=== PATIENT | male | born 1950 | race Hispanic/Latino ===

== ENCOUNTER 2018-09-15 17:25 | Emergency (ER) | payer OTHER ==
[2018-09-15] MEDS ORDERED: METOCLOPRAMIDE 10 MG/2 ML VIAL ONE (18:21)
[2018-09-15] MEDS ORDERED: ONDANSETRON HCL 4 MG/2 ML VIAL ONE (18:21)
[2018-09-15] MEDS ORDERED: SODIUM CHLORIDE 0.9% 1000ML 1,000 ML IV ONE (18:21)
[2018-09-15] MEDS ORDERED: FENTANYL CITRATE PF 50 MCG/1 ML 2ML VIAL ONE ×2 (18:22→20:57)
[2018-09-15 18:30] LABS: BASOPHILS % (AUTO) 0.9 % (0.0-5.0); EOSINOPHILS % (AUTO) 0.8 % (0.0-8.0); HEMATOCRIT 43.2 % (42-54); LYMPHOCYTES % (AUTO) 10.2 % (21.0-51.0); MEAN CORPUSCULAR HEMOGLOBIN 30.2 pg (27.0-33.0); MEAN CORPUSCULAR HGB CONC 33.2 g/dL (32.0-36.0); MEAN CORPUSCULAR VOLUME 91.1 fL (79-99); MONOCYTES % (AUTO) 2.5 % (3.0-13.0); NEUTROPHILS % (AUTO) 85.6 % (40.0-77.0); NUCLEATED RED BLOOD CELLS 0.1 % (0.0-0.19); PLATELET COUNT (AUTO) 223 K/uL (130-400); RED BLOOD CELL COUNT(AUTO) 4.74 MIL/uL (4.50-6.20); RED CELL DISTRIBUTION WIDTH 13.7 % (11.0-15.5); WHITE BLOOD COUNT (AUTO) 7.4 K/uL (4.8-10.8)
[2018-09-15] MEDS ORDERED: METHYLPREDNISOLONE SOD SUCC 125MG/2ML VIAL ONE (18:59)
[2018-09-15 19:11] LABS: BILIRUBIN,TOTAL 0.4 mg/dL (0.2-1.0); CREATININE 0.7 mg/dL (0.5-1.5); TOTAL PROTEIN, SERUM 7.8 g/dL (6.0-8.3)
[2018-09-15 19:12] LABS: POTASSIUM 4.9 mmol/L (3.5-5.1)
[2018-09-15] MEDS ORDERED: DiphenhydrAMINE HCL 50 MG/ML VIAL ONE (19:32)
== END 2018-09-15 21:46 | disposition home or self-care (01) ==
LOC: EDH 17:25
DX: G43.019 Migraine without aura, intractable, without status migrainosus (principal); M54.2 Cervicalgia; I10 Essential (primary) hypertension; Z88.6 Allergy status to analgesic agent; Z72.0 Tobacco use
CPT/HCPCS: 36415; 70450; 80053; 83690; 85025; 96374; 96375; 96376; 99284; J1200; J2405; J2765; J2930; J3010 ×2; J7030

== ENCOUNTER 2019-02-22 12:16 | Emergency (ER) | payer OTHER | END 2019-02-22 13:37 | disposition home or self-care (01) | LOC: EDH 12:16 | DX: G89.29 Other chronic pain (principal); M25.511 Pain in right shoulder; I10 Essential (primary) hypertension; Z72.0 Tobacco use; Z88.6 Allergy status to analgesic agent | CPT/HCPCS: 96372 ==

== ENCOUNTER 2019-06-03 13:15 | Inpatient (IN) | payer OTHER ==
[~2019-06-03] VITALS: Ht 172.7 cm; Wt 57.0 kg
[2019-06-03 15:49] VITALS: BP 150/80
[2019-06-03 15:59] LABS: BILIRUBIN,URINE Negative (NEGATIVE); COLOR,URINE Yellow (YELLOW); GLUCOSE, URINE (UA) Negative (NEGATIVE); KETONES,URINE Negative (NEGATIVE); LEUKOCYTE ESTERASE ,URINE Negative (NEGATIVE); NITRATE,URINE Negative (NEGATIVE); OCCULT BLOOD,URINE Negative (NEGATIVE); PH,URINE 7.5 (5.0-8.0); PROTEIN,URINE Negative (NEGATIVE)
[2019-06-03 16:04] LABS: APPEARANCE,URINE CLEAR (CLEAR)
[2019-06-03] MEDS ORDERED: BUPR150T8 PO (16:07)
[2019-06-03] MEDS ORDERED: AMIT50TA3 PO (16:07)
[2019-06-03] MEDS ORDERED: GABA600T10 PO (16:07)
[2019-06-03] MEDS ORDERED: LISI40TA4 PO (16:07)
[2019-06-03] MEDS ORDERED: NICO2GUM35 BC (16:07)
[2019-06-03] MEDS ORDERED: MILK OF MAGNESIA PO (16:07)
[2019-06-03] MEDS ORDERED: POTA-79 PO (16:07)
[2019-06-03] MEDS ORDERED: OXYC-517 PO (16:07)
[2019-06-03] MEDS ORDERED: ALBUTEROL IH (16:07)
[2019-06-03] MEDS ORDERED: CHOL400T4 PO (16:07)
[2019-06-03] MEDS ORDERED: BUDESONIDE IH (16:07)
[2019-06-03] MEDS ORDERED: SUMA25TA9 PO (16:07)
[2019-06-03] MEDS ORDERED: TOPI50TA24 PO (16:07)
[2019-06-03] MEDS ORDERED: CYAN100099 PO (16:07)
[2019-06-03] MEDS ORDERED: ASPI-1181 PO (16:07)
[2019-06-04] VITALS (31 sets, daily range): BP systolic 97–173; BP diastolic 58–106
--- NOTE | 2019-06-04 07:30 | NUR ---
POTENTIAL FOR INFECTION: SHAVED RIGHT SHOULDER / UPPER RIGHT ARM PER REBECCA DAVIS, FOLLOWED BY WIPING WITH TEODORA: 2% CHLORHEXIDINE GLUCONATE CLOTH PATIENTS PRE-OP SKIN PREP.
[2019-06-04] MEDS: CEFAZOLIN SODIUM 1 GM VIAL IVP SCH ×3 (08:00→18:42)
[2019-06-04] MEDS ORDERED: LACTATED RINGERS 1000ML 1,000 ML IV ONE (08:07)
[2019-06-04] MEDS ORDERED: CEFAZOLIN SODIUM 1 GM VIAL ONE (08:55)
[2019-06-04] MEDS ORDERED: TRANEXAMIC ACID 1000MG/10ML IV ONE (08:55)
[2019-06-04] MEDS ORDERED: OXYCODONE HCL 10 MG TAB.SR.12H PO ONE (09:18)
[2019-06-04] MEDS ORDERED: METOCLOPRAMIDE 10 MG/2 ML VIAL ONE (09:18)
[2019-06-04] MEDS ORDERED: CELECOXIB 200 MG CAP ONE (09:18)
[2019-06-04] MEDS ORDERED: ACETAMINOPHEN EXTRA STRENGTH 500 MG TABLET ONE (09:18)
[2019-06-04] MEDS ORDERED: LIDOCAINE PF 2% 5ML ABBOJECT ONE (09:56)
[2019-06-04] MEDS ORDERED: ROCURONIUM 10MG/1ML SYR 10 MG/ML ML ONE ×3 (09:57→12:22)
[2019-06-04] MEDS ORDERED: FENTANYL CITRATE PF 50 MCG/1 ML 2ML VIAL ONE ×3 (09:57→11:03)
[2019-06-04] MEDS ORDERED: MIDAZOLAM HCL 1 MG/ML 2ML VIAL ONE (09:57)
[2019-06-04] MEDS ORDERED: PROPOFOL 10 MG/ML 20ML VIAL IV ONE (09:57)
[2019-06-04] MEDS ORDERED: DEXAMETHASONE SOD PHOSPHATE 10MG/ML 1ML VIAL ONE (10:41)
[2019-06-04] MEDS ORDERED: ONDANSETRON HCL 4 MG/2 ML VIAL ONE (10:41)
[2019-06-04] MEDS ORDERED: CEFAZOLIN SODIUM 1 GM VIAL IRRIG ONE (11:01)
[2019-06-04] MEDS ORDERED: METOPROLOL TARTRATE 1 MG/ML 5ML VIAL IV ONE (11:05)
[2019-06-04] MEDS ORDERED: BUPIVACAINE/EPI/PF 0.5% 30ML VIAL IJ ONE (11:31)
[2019-06-04] MEDS ORDERED: BUPIVACAINE/PF 0.5% 30ML VIAL ONE (11:31)
[2019-06-04] MEDS ORDERED: GLYCOPYRROLATE 1 MG/5 ML SYRINGE ONE (12:11)
[2019-06-04] MEDS ORDERED: NEOSTIGMINE 5MG/5ML SYR IV ONE (12:11)
[2019-06-04] MEDS: ACETAMINOPHEN EXTRA STRENGTH 500 MG TABLET PO SCH ×2 (13:45→20:36)
[2019-06-04] MEDS ORDERED: FE FUMARATE/FA/MV, MIN COMB#15 1 TAB PO PRN (13:45)
[2019-06-04] MEDS ORDERED: LIDOCAINE HCL-MPF 1% 2ML VIAL IVP PRN (13:45)
[2019-06-04] MEDS ORDERED: POTASSIUM CHLORIDE 10% ELIXIR 20 MEQ/15 ML UDCUP PO PRN (13:45)
[2019-06-04] MEDS ORDERED: POTASSIUM CHLORIDE 20MEQ/100ML 100 ML IV PRN (13:45)
[2019-06-04] MEDS ORDERED: DiphenhydrAMINE HCL 50 MG/ML VIAL IVP PRN (13:45)
[2019-06-04] MEDS ORDERED: TEMAZEPAM 15 MG CAPSULE PO PRN (13:45)
[2019-06-04] MEDS ORDERED: POTASSIUM CHLORIDE 20 MEQ ERTAB PO PRN (13:45)
[2019-06-04] MEDS ORDERED: MEPERIDINE-PF 25 MG/ML SYG ONE ×2 (13:55→14:22)
[2019-06-04] MEDS ORDERED: HYDROMORPHONE PCA 10 MG/50 ML 50 ML IV ONE (14:29)
[2019-06-04] MEDS ORDERED: HYDRALAZINE HCL 20 MG/ML VIAL ONE (14:34)
[2019-06-04] MEDS ORDERED: NALOXONE HCL 0.4 MG/1 ML ML IVP PRN (15:00)
[2019-06-04] MEDS ORDERED: HYDROMORPHONE PCA 10MG/50 ML ( 0.2 MG/ML ) IV PRN (15:00)
--- NOTE | 2019-06-04 15:30 | NUR ---
Admitted pt to room, awake,alert,oriented x3. Dilaudid PATTERNMAKER METAL in connected to pt. Instructed on the usage of the PATTERNMAKER METAL and was able to perform return demonstration. Hemovac in place to right shoulder. Dressing dry and intact. Ice packs in place to right shoulder.
[2019-06-04] MEDS: SODIUM CHLORIDE 0.9% 1000ML 1,000 ML IV SCH ×2 (16:49→20:36)
[2019-06-04] MEDS: CELECOXIB 200 MG CAP PO SCH (20:35)
[2019-06-04] MEDS: PREGABALIN 25 MG CAP PO SCH (20:35)
[2019-06-04] MEDS: ASPIRIN 325 MG TABLET PO SCH (20:35)
[2019-06-04] MEDS: FAMOTIDINE 20MG TAB 20 MG TAB PO SCH (20:36)
[2019-06-05] MEDS: CEFAZOLIN SODIUM 1 GM VIAL IVP SCH (02:56)
[2019-06-05 03:30] VITALS: BP 112/56
[2019-06-05] MEDS: NICOTINE POLACRILEX 2 MG PO SCH ×3 (04:17→14:23)
[2019-06-05] MEDS: ACETAMINOPHEN EXTRA STRENGTH 500 MG TABLET PO SCH ×3 (04:41→22:31)
[2019-06-05] MEDS: OXYCODONE HCL 5 MG TAB PO PRN ×3 (05:29→21:17)
[2019-06-05 05:35] LABS: HEMATOCRIT 32.1 % (42-54); MEAN CORPUSCULAR HEMOGLOBIN 30.5 pg (27.0-33.0); MEAN CORPUSCULAR HGB CONC 32.9 g/dL (32.0-36.0); MEAN CORPUSCULAR VOLUME 92.6 fL (79-99); PLATELET COUNT (AUTO) 171 K/uL (130-400); RED BLOOD CELL COUNT(AUTO) 3.47 MIL/uL (4.50-6.20); RED CELL DISTRIBUTION WIDTH 14.8 % (11.0-15.5); WHITE BLOOD COUNT (AUTO) 13.3 K/uL (4.8-10.8)
[2019-06-05] MEDS: ONDANSETRON HCL 4 MG/2 ML VIAL IVP PRN ×2 (05:35→21:22)
[2019-06-05 05:46] LABS: CREATININE 0.8 mg/dL (0.5-1.5); POTASSIUM 3.8 mmol/L (3.5-5.1)
[2019-06-05 08:10] VITALS: BP 146/73
[2019-06-05] MEDS: BUPROPION HCL 150 MG TABLET.SA PO SCH ×2 (08:53→19:46)
[2019-06-05] MEDS: ASPIRIN 325 MG TABLET PO SCH ×2 (08:53→19:46)
[2019-06-05] MEDS: POLYETHYLENE GLYCOL 3350 17 GM POWD.PACK PO SCH (08:53)
[2019-06-05] MEDS: FAMOTIDINE 20MG TAB 20 MG TAB PO SCH ×2 (08:53→19:46)
[2019-06-05] MEDS: CALCIUM CARBONATE 500 MG TABLET PO PRN ×2 (08:53→19:46)
[2019-06-05] MEDS: CELECOXIB 200 MG CAP PO SCH ×2 (08:53→19:46)
[2019-06-05] MEDS: PREGABALIN 25 MG CAP PO SCH ×2 (08:53→19:45)
[2019-06-05] MEDS: LISINOPRIL 40 MG TABLET PO SCH (08:54)
[2019-06-05] MEDS: TAMSULOSIN HCL 0.4 MG CAP.ER.24H PO SCH (08:54)
[2019-06-05] MEDS: VITAMIN D3 PO SCH (08:54)
[2019-06-05] MEDS: POTASSIUM CHLORIDE 10 MEQ/TAB.SA PO SCH (08:56)
[2019-06-05] MEDS: SUMATRIPTAN SUCCINATE 25 MG TABLET PO PRN ×2 (08:58→20:40)
[2019-06-05] MEDS: SODIUM CHLORIDE 0.9% 1000ML 1,000 ML IV SCH (10:11)
[2019-06-05 11:10] VITALS: BP 112/75
[2019-06-05 16:09] VITALS: BP 85/56
[2019-06-05] MEDS: TOPIRAMATE 100 MG TAB PO SCH (19:45)
[2019-06-05] MEDS: AMITRIPTYLINE HCL 25 MG TABLET PO SCH (19:46)
[2019-06-05 19:52] VITALS: BP 111/85
[2019-06-06] VITALS (7 sets, daily range): BP systolic 85–114; BP diastolic 52–74
[2019-06-06] MEDS: NICOTINE POLACRILEX 2 MG PO SCH ×5 (02:12→19:50)
[2019-06-06] MEDS: ACETAMINOPHEN EXTRA STRENGTH 500 MG TABLET PO SCH ×3 (05:24→20:54)
--- NOTE | 2019-06-06 08:30 | NUR ---
PT'S BP 85/56 DR. BRUNO AWARE PT DENIES SOB OR CHEST PAIN ALERT AND ORIENTED X 4 - BUT SLEEPY HVAC SERVICE TECHNICIAN STOPPED
--- NOTE | 2019-06-06 08:41 | NUR ---
UPDATE ON REFERRAL EMAIL FROM [facility] REQUESTING UPDATE. CALL TO ROBERT AT [facility], HEADS UP RE REFERRAL STATED HAS NOTE RECD, CALL BACK TO [facility], SAID SHE FAXED YESTERDAY, WILL RE FAX NOW. Addendum: 06/06/19 at 0844 by AYDE BAUMAN RN CM Amended: Links added.
[2019-06-06] MEDS ORDERED: BUDESONIDE IH PRN (09:00)
[2019-06-06] MEDS: LISINOPRIL 40 MG TABLET PO SCH (09:00)
[2019-06-06] MEDS ORDERED: Albuterol 2 PUFF IH PRN (09:00)
[2019-06-06] MEDS: VITAMIN D3 PO SCH (09:00)
[2019-06-06] MEDS: FAMOTIDINE 20MG TAB 20 MG TAB PO SCH ×2 (09:11→20:51)
[2019-06-06] MEDS: POLYETHYLENE GLYCOL 3350 17 GM POWD.PACK PO SCH (09:11)
[2019-06-06] MEDS: TAMSULOSIN HCL 0.4 MG CAP.ER.24H PO SCH (09:11)
[2019-06-06] MEDS: CELECOXIB 200 MG CAP PO SCH ×2 (09:11→20:50)
[2019-06-06] MEDS: ASPIRIN 325 MG TABLET PO SCH ×2 (09:11→20:51)
[2019-06-06] MEDS: BUPROPION HCL 150 MG TABLET.SA PO SCH ×2 (09:12→20:50)
[2019-06-06] MEDS: POTASSIUM CHLORIDE 10 MEQ/TAB.SA PO SCH (09:12)
[2019-06-06] MEDS: PREGABALIN 25 MG CAP PO SCH ×2 (09:13→20:50)
[2019-06-06] MEDS ORDERED: KETOROLAC TROMETHAMINE 30MG/ML ONE (10:57)
[2019-06-06] MEDS: OXYCODONE HCL 5 MG TAB PO PRN ×2 (11:01→17:06)
--- NOTE | 2019-06-06 14:00 | NUR ---
DR. BRUNO PAGED PT STILL BP 86/55 PT DENIES SOB OR CHEST PAIN PT STATES HE IS STILL IN PAIN DR. BRUNO CONSULTED HOSPITALIST
--- NOTE | 2019-06-06 14:07 | NUR ---
JOSÉ MANUEL STODDARD FOR [facility] [place] [facility] PRIMARY NURSE AWARE, WILL INFORM DR. KIANA LIN, RN ADVISED THIS CM THAT BP STILL LOW, DC WILL DEPEND ON DR. MORTENSEN PT AWARE THAT [place] APPROVED [facility] Addendum: 06/06/19 at 1937 by AYDE BAUMAN RN Amended: Links added.
--- NOTE | 2019-06-06 14:10 | NUR ---
DR. MORTENSEN PAGED AWRAE OF PT'S STATUS CPOE ORDERS
[2019-06-06] MEDS: MIDODRINE HCL 5 MG TABLET PO SCH ×2 (14:15→20:50)
[2019-06-06] MEDS ORDERED: MIDODRINE HCL 5 MG TABLET ONE (14:37)
--- NOTE | 2019-06-06 18:00 | NUR ---
DR. MORTENSEN AWARE THAT PER DR. BRUNO PT OK TO D/C ONCE CLEARED BY HOSPITALIST
--- NOTE | 2019-06-06 20:00 | NUR ---
PT'S DRESSING CHANGED NO SIGNS OF INFECTION NOTED HEMO VAC D/C ORDERED CATHETER TIP INTACT FAMILY AT BED SIDE
[2019-06-06] MEDS: AMITRIPTYLINE HCL 25 MG TABLET PO SCH (20:50)
[2019-06-06] MEDS: TOPIRAMATE 100 MG TAB PO SCH (20:51)
[2019-06-07] VITALS (7 sets, daily range): BP systolic 90–149; BP diastolic 55–81
[2019-06-07] MEDS: OXYCODONE HCL 5 MG TAB PO PRN ×4 (00:48→21:46)
--- NOTE | 2019-06-07 01:00 | NUR ---
PENDING CONSULT /LOW B/P CALLED HOSPITALIST SANDFILL OPERATOR SURFACE LISSETT ADAMP INFORMED OF PENDING CONSULT, ORDERS GIVEN BY DR. MORTENSEN BUT NOBODY HAS SEEN PATIENT , INFORMED ON B/P 89/53, PULSE 75, R 18, TEMP 98.4 F, WITH ORDERS, BOLUS PATIENT WITH 500 CC OF NS NOW AND WILL SEE PATIENT LATER
[2019-06-07] MEDS: SODIUM CHLORIDE 0.9% 1000ML 500 ML IV SCH ×4 (01:30→03:40)
--- NOTE | 2019-06-07 02:00 | NUR ---
med effect b/p 112/58, no sob, no c/o pain at this time
[2019-06-07] MEDS: ACETAMINOPHEN EXTRA STRENGTH 500 MG TABLET PO SCH ×3 (04:50→20:59)
[2019-06-07] MEDS: NICOTINE POLACRILEX 2 MG PO SCH ×4 (06:00→23:32)
--- NOTE | 2019-06-07 08:50 | NUR ---
as per registry np hospitalist stated no to give midrodane anymore
[2019-06-07] MEDS: TAMSULOSIN HCL 0.4 MG CAP.ER.24H PO SCH (09:00)
[2019-06-07] MEDS: LISINOPRIL 40 MG TABLET PO SCH (09:00)
[2019-06-07] MEDS: MIDODRINE HCL 5 MG TABLET PO SCH ×3 (09:00→21:02)
[2019-06-07] MEDS: VITAMIN D3 PO SCH (09:00)
[2019-06-07] MEDS: PREGABALIN 25 MG CAP PO SCH ×2 (09:05→20:58)
[2019-06-07] MEDS: FAMOTIDINE 20MG TAB 20 MG TAB PO SCH ×2 (09:05→20:58)
[2019-06-07] MEDS: POLYETHYLENE GLYCOL 3350 17 GM POWD.PACK PO SCH (09:05)
[2019-06-07] MEDS: ASPIRIN 325 MG TABLET PO SCH ×2 (09:05→20:58)
[2019-06-07] MEDS: POTASSIUM CHLORIDE 10 MEQ/TAB.SA PO SCH (09:06)
[2019-06-07] MEDS: BUPROPION HCL 150 MG TABLET.SA PO SCH ×2 (09:06→20:58)
[2019-06-07] MEDS: CELECOXIB 200 MG CAP PO SCH ×2 (09:06→20:57)
--- NOTE | 2019-06-07 10:20 | NUR ---
cm note received call from [facility] spoke to niko crump [phone]. and states that they are unable to accdpt pt today, due to short staffing at their facility. and will be unable to accept until sunday,I updated pt and verbalizes understanding. will do whatever md recommends. call then made to Dr modi to update on [facility] [place]. discussed with md regarding possible alternatvies home with home health, per md pt requires IP rehab. will await until pt approved at rehab. due to pt is [facility] and will require approval for any facility.
[2019-06-07] MEDS ORDERED: BISACODYL 10 MG SUPP.RECT RC PRN (13:45)
[2019-06-07] MEDS: TOPIRAMATE 100 MG TAB PO SCH (20:58)
[2019-06-07] MEDS: AMITRIPTYLINE HCL 25 MG TABLET PO SCH (20:58)
[2019-06-08] VITALS: BP 108/70
[2019-06-08] MEDS: OXYCODONE HCL 5 MG TAB PO PRN ×2 (01:47→09:15)
[2019-06-08 04:00] VITALS: BP 128/80
[2019-06-08] MEDS: ACETAMINOPHEN EXTRA STRENGTH 500 MG TABLET PO SCH ×2 (05:08→13:16)
[2019-06-08] MEDS: NICOTINE POLACRILEX 2 MG PO SCH ×2 (05:35→12:00)
[2019-06-08 07:55] VITALS: BP 124/85
[2019-06-08] MEDS: TAMSULOSIN HCL 0.4 MG CAP.ER.24H PO SCH ×2 (09:00→09:14)
[2019-06-08] MEDS: VITAMIN D3 PO SCH (09:00)
[2019-06-08] MEDS: LISINOPRIL 40 MG TABLET PO SCH (09:00)
[2019-06-08] MEDS: POLYETHYLENE GLYCOL 3350 17 GM POWD.PACK PO SCH (09:13)
[2019-06-08] MEDS: PREGABALIN 25 MG CAP PO SCH (09:14)
[2019-06-08] MEDS: ASPIRIN 325 MG TABLET PO SCH (09:14)
[2019-06-08] MEDS: FAMOTIDINE 20MG TAB 20 MG TAB PO SCH (09:14)
[2019-06-08] MEDS: BUPROPION HCL 150 MG TABLET.SA PO SCH (09:15)
[2019-06-08] MEDS: POTASSIUM CHLORIDE 10 MEQ/TAB.SA PO SCH (09:15)
[2019-06-08] MEDS: CELECOXIB 200 MG CAP PO SCH (09:15)
[2019-06-08 11:27] VITALS: BP 99/71
--- NOTE | 2019-06-08 14:00 | NUR ---
cm note received call from primary nurse estefani., that [facility] [place], had called and could accept pt. this evening, call made to garth charge nurse and she did confirm, that pt can go for evening shift, call then made to Amber jiménez, to confirm, and states pt can go to [facility], pt has been accepted for 7pm shift today, md updated and will come and write dc orders, pt updated and in agreement,
[2019-06-08] MEDS ORDERED: MAGNESIUM CITRATE 296 ML SOLUTION ONE (14:42)
[2019-06-08] MEDS ORDERED: MAGNESIUM CITRATE 296 ML SOLUTION PO ONE (14:45)
[2019-06-08 16:42] VITALS: BP 98/65
--- NOTE | 2019-06-08 18:05 | NUR ---
FULL SBAR REPORT GIVEN TO CHARGE NURSE [facility]ONC[facility] FAXED ALONG WITH MOT, AND FACE SHEET ORIGINALS OF D/C ORDERS MED REC, MOT , FACE SHEET ON THE D/C FOLDER AWARE OF FULL D/C ORDERS REFER TO D/C SUMMARY
--- NOTE | 2019-06-08 18:30 | NUR ---
TEACH BACK D/C DONE SUCCESSFULLY PT GIVEN COPY OF D/C ORDERS FROM DR. BRUNO AND COPY OF MED REC ALONG WITH SUMMARY D/C AND EDUCATION ON PROCEDURE AND ARM SLING IV REMOVED, CATHETER TIP INTACT INCISION CLEAN AND DRY PT DENIES SOB OR CHEST PAIN
== END 2019-06-08 19:54 | DRG 483 ==
LOC: EDSTATUS 13:15 → DAHIP 06-04 06:20 → 4AH 06-04 14:11
PROVIDERS: ADMIT Orthopaedic Surgery; ATTEND Orthopaedic Surgery
PROC: 0RRJ00Z Replacement of Right Shoulder Joint with Reverse Ball and Socket Synthetic Substitute, Open Approach (ICD-10-PCS; principal; 2019-06-04 09:57)
DX: M75.101 Unspecified rotator cuff tear or rupture of right shoulder, not specified as traumatic (principal); G89.29 Other chronic pain; F17.200 Nicotine dependence, unspecified, uncomplicated; G43.909 Migraine, unspecified, not intractable, without status migrainosus; I95.89 Other hypotension; J44.9 Chronic obstructive pulmonary disease, unspecified; K21.9 Gastro-esophageal reflux disease without esophagitis; K59.00 Constipation, unspecified; M24.111 Other articular cartilage disorders, right shoulder; M24.811 Other specific joint derangements of right shoulder, not elsewhere classified; I10 Essential (primary) hypertension; S43.101A Unspecified dislocation of right acromioclavicular joint, initial encounter; X58.XXXA Exposure to other specified factors, initial encounter; Z53.29 Procedure and treatment not carried out because of patient's decision for other reasons; Y93.89 Activity, other specified; Z82.49 Family history of ischemic heart disease and other diseases of the circulatory system; Y92.89 Other specified places as the place of occurrence of the external cause; Y99.8 Other external cause status; Z88.8 Allergy status to other drugs, medicaments and biological substances
CPT/HCPCS: 36415; 73020; 80048; 81003; 85027; 87641; 88304; 88311; 96374; 97039; A4565; G0378; J0360; J0690; J1100; J1170; J1885; J2001; J2175; J2250; J2405; J2704; J2710; J2765; J3010; J3490; J7030; J7120

== ENCOUNTER 2022-04-09 16:28 | Emergency (ER) | payer OTHER ==
[~2022-04-09] VITALS: Ht 162.6 cm; Wt 47.7 kg
[~2022-04-09 16:28] MED LIST: ALBUTEROL IH; AMIT50TA3 PO; ASPI-1443 PO; BUDESONIDE IH; BUPR-113 PO; CHOL400T4 PO; CYAN100099 PO; GABA600T10 PO; LISI40TA9 PO; MILK OF MAGNESIA PO; NICO2GUM35 BC; OXYC1TAB12 PO; POTA-79 PO; SUMA25TA9 PO; TOPI50TA24 PO
[2022-04-09] MEDS ORDERED: 0.9%NACL 1000ML 1,000 ML IV SCH (17:00)
[2022-04-09 17:39] LABS: BASOPHILS % (AUTO) 0.8 % (0.0-5.0); EOSINOPHILS % (AUTO) 0.7 % (0.0-8.0); LYMPHOCYTES % (AUTO) 24.8 % (21.0-51.0); MEAN CORPUSCULAR HEMOGLOBIN 28.3 pg (27.0-33.0); MEAN CORPUSCULAR VOLUME 85.9 fL (79-99); MONOCYTES % (AUTO) 6.8 % (3.0-13.0); NEUTROPHILS % (AUTO) 66.6 % (40.0-77.0); PLATELET COUNT (AUTO) 233 K/uL (130-400); RED BLOOD CELL COUNT(AUTO) 5.12 MIL/uL (4.50-6.20); RED CELL DISTRIBUTION WIDTH 13.6 % (11.0-15.5); WHITE BLOOD COUNT (AUTO) 7.3 K/uL (4.8-10.8)
[2022-04-09 17:49] LABS: CREATININE 0.9 mg/dL (0.5-1.5); POTASSIUM 3.2 mmol/L (3.5-5.1)
[2022-04-09 17:58] LABS: ALBUMIN 4.3 g/dL (3.5-5.0); BILIRUBIN,TOTAL 0.3 mg/dL (0.2-1.0); TOTAL PROTEIN, SERUM 8.1 g/dL (6.0-8.3)
[2022-04-09 18:13] LABS: APPEARANCE,URINE CLEAR (CLEAR); BILIRUBIN,URINE NEGATIVE (NEGATIVE); COLOR,URINE YELLOW (YELLOW); GLUCOSE, URINE (UA) NEGATIVE (NEGATIVE); KETONES,URINE 15 mg/dL (NEGATIVE); LEUKOCYTE ESTERASE ,URINE NEGATIVE (NEGATIVE); NITRATE,URINE NEGATIVE (NEGATIVE); OCCULT BLOOD,URINE NEGATIVE (NEGATIVE); PROTEIN,URINE NEGATIVE (NEGATIVE); UROBILINOGEN,URINE 0.2 mg/dL (0.2-1.0)
[2022-04-09 18:21] LABS: AMPHET/METH SCREEN,URINE NEGATIVE (NEGATIVE); BARBITURATE SCREEN, URINE NEGATIVE (NEGATIVE); BENZODIAZEPINES SCREEN,URINE POSITIVE (NEGATIVE); CANNABINOID SCREEN,URINE NEGATIVE (NEGATIVE); COCAINE SCREEN,URINE NEGATIVE (NEGATIVE); OPIATE SCREEN,URINE NEGATIVE (NEGATIVE); PHENCYCLIDINE SCREEN,URINE NEGATIVE (NEGATIVE)
[2022-04-09] MEDS ORDERED: POTA10CA44 PO (18:25)
[2022-04-09] MEDS ORDERED: POTASSIUM BICARB/CIT AC 25 MEQ TABLET.EFF PO ONE (18:30)
[2022-04-09] MEDS ORDERED: OXYCODONE/ACETAMIN 5/325MG TAB PO ONE (18:30)
[2022-04-09 19:00] VITALS: BP 145/83
[2022-04-09] MEDS ORDERED: HYDROMORPHONE 1 MG INJ IVP ONE (19:00)
== END 2022-04-09 19:25 | disposition home or self-care (01) ==
LOC: EDH 16:28
DX: E87.6 Hypokalemia (principal); G89.29 Other chronic pain; M54.50 Low back pain, unspecified; R53.1 Weakness; Z88.5 Allergy status to narcotic agent; Z88.8 Allergy status to other drugs, medicaments and biological substances; Z79.891 Long term (current) use of opiate analgesic
CPT/HCPCS: 36415; 71045; 80053; 80305; 81003; 84484; 85025; 93005; 96374; 99285; J1170; J7030

== ENCOUNTER 2022-07-22 10:25 | Emergency (ER) | payer OTHER ==
[~2022-07-22] VITALS: Ht 172.7 cm; Wt 63.5 kg
[~2022-07-22 10:25] MED LIST changes: +POTA10CA44 PO
[2022-07-22 10:26] VITALS: BP 118/73
[2022-07-22 13:54] LABS: BASOPHILS % (AUTO) 1.2 % (0.0-5.0); EOSINOPHILS % (AUTO) 3.8 % (0.0-8.0); HEMATOCRIT 39.2 % (42-54); LYMPHOCYTES % (AUTO) 30.4 % (21.0-51.0); MEAN CORPUSCULAR HEMOGLOBIN 28.9 pg (27.0-33.0); MEAN CORPUSCULAR HGB CONC 32.7 g/dL (32.0-36.0); MEAN CORPUSCULAR VOLUME 88.5 fL (79-99); MONOCYTES % (AUTO) 6.8 % (3.0-13.0); NEUTROPHILS % (AUTO) 57.6 % (40.0-77.0); PLATELET COUNT (AUTO) 198 K/uL (130-400); RED BLOOD CELL COUNT(AUTO) 4.43 MIL/uL (4.50-6.20); RED CELL DISTRIBUTION WIDTH 14.4 % (11.0-15.5)
[2022-07-22] MEDS ORDERED: ONDANSETRON 4MG INJ IVP ONE (14:00)
[2022-07-22] MEDS ORDERED: MORPHINE 2 MG SYG IVP ONE (14:00)
[2022-07-22 14:03] LABS: APPEARANCE,URINE CLEAR (CLEAR); BILIRUBIN,URINE NEGATIVE (NEGATIVE); COLOR,URINE YELLOW (YELLOW); GLUCOSE, URINE (UA) NEGATIVE (NEGATIVE); KETONES,URINE NEGATIVE (NEGATIVE); LEUKOCYTE ESTERASE ,URINE NEGATIVE Leu/uL (NEGATIVE); NITRATE,URINE NEGATIVE (NEGATIVE); OCCULT BLOOD,URINE NEGATIVE (NEGATIVE); PH,URINE 5.5 (5.0-8.0); PROTEIN,URINE NEGATIVE (NEGATIVE); UROBILINOGEN,URINE 0.2 mg/dL (0.2-1.0)
[2022-07-22 14:09] LABS: ALANINE AMINOTRANSFERASE 14 U/L (12-78); ASPARTATE AMINOTRANSFERASE 16 U/L (10-37); CARBON DIOXIDE 28 mmol/L (21-32); CHLORIDE 103 mmol/L (101-111); CREATININE 0.9 mg/dL (0.5-1.5); GLOMERULAR FILTR. RATE CALC 88 mL/min (>60); GLUCOSE,RANDOM 98 mg/dL (70-105); POTASSIUM 4.1 mmol/L (3.5-5.1); SODIUM SERUM 138 mmol/L (136-145); TOTAL PROTEIN, SERUM 7.6 g/dL (6.0-8.3); UREA NITROGEN, BLOOD 17 mg/dL (7-18)
[2022-07-22 14:15] LABS: CRP QUANTITATIVE < 2.00 mg/L (0.00-9.0)
[2022-07-22] MEDS ORDERED: LACT10PA5 PO (14:44)
[2022-07-22] MEDS ORDERED: FENTANYL 12 MCG/HR PATCH TD SCH (15:00)
[2022-07-22] MEDS ORDERED: FENTANYL 50 MCG/HR PATCH TD ONE (15:22)
== END 2022-07-22 15:33 | disposition home or self-care (01) ==
LOC: EDH 10:25
DX: M54.41 Lumbago with sciatica, right side (principal); K57.10 Diverticulosis of small intestine without perforation or abscess without bleeding; K59.01 Slow transit constipation; Z88.5 Allergy status to narcotic agent; Z88.8 Allergy status to other drugs, medicaments and biological substances
CPT/HCPCS: 99284; 74176; 96374; 96375; 84484; 80053; 85025; 86140; 81003; 36415; J2405

== ENCOUNTER 2022-08-04 18:14 | Emergency (ER) | payer MEDICARE, OTHER ==
[~2022-08-04] VITALS: Ht 172.7 cm; Wt 47.6 kg
[~2022-08-04 18:14] MED LIST changes: +LACT10PA5 PO
[2022-08-04 18:15] VITALS: BP 144/89
[2022-08-04] MEDS ORDERED: 0.9% NACL 500ML IV.SOLN 500 ML IV SCH (19:00)
[2022-08-04] MEDS ORDERED: ACETAMINOPHEN 500 MG TABLET PO ONE (19:00)
[2022-08-04] MEDS ORDERED: CYCLOBENZAPRINE HCL 10 MG TABLET PO ONE (19:00)
[2022-08-04] MEDS ORDERED: PROMETHAZINE HCL 25 MG/ML 1ML AMPULE IM SCH (19:00)
[2022-08-04] MEDS ORDERED: ACET-2247 PO (19:21)
[2022-08-04] MEDS ORDERED: CYCL10TA16 PO (19:21)
[2022-08-04 19:43] LABS: BASOPHILS % (AUTO) 1.4 % (0.0-5.0); EOSINOPHILS % (AUTO) 3.5 % (0.0-8.0); LYMPHOCYTES % (AUTO) 30.7 % (21.0-51.0); MEAN CORPUSCULAR HEMOGLOBIN 29.5 pg (27.0-33.0); MEAN CORPUSCULAR VOLUME 89.5 fL (79-99); NEUTROPHILS % (AUTO) 56.2 % (40.0-77.0); PLATELET COUNT (AUTO) 198 K/uL (130-400); RED BLOOD CELL COUNT(AUTO) 4.47 MIL/uL (4.50-6.20); WHITE BLOOD COUNT (AUTO) 4.9 K/uL (4.8-10.8)
[2022-08-04 19:51] LABS: CARBON DIOXIDE 28 mmol/L (21-32); CHLORIDE 103 mmol/L (101-111); CREATININE 0.9 mg/dL (0.5-1.5); GLOMERULAR FILTR. RATE CALC 88 mL/min (>60); GLUCOSE,RANDOM 92 mg/dL (70-105); SODIUM SERUM 138 mmol/L (136-145); UREA NITROGEN, BLOOD 17 mg/dL (7-18)
[2022-08-04 19:55] LABS: ALANINE AMINOTRANSFERASE 12 U/L (12-78); ALBUMIN 4.1 g/dL (3.5-5.0); ASPARTATE AMINOTRANSFERASE 11 U/L (10-37); TOTAL PROTEIN, SERUM 7.7 g/dL (6.0-8.3)
[2022-08-04 20:06] LABS: CRP QUANTITATIVE < 2.00 mg/L (0.00-9.0)
== END 2022-08-04 20:55 | disposition home or self-care (01) ==
LOC: EDH 18:14
DX: G43.909 Migraine, unspecified, not intractable, without status migrainosus (principal); F41.9 Anxiety disorder, unspecified; G89.29 Other chronic pain; Z88.6 Allergy status to analgesic agent; Z79.899 Other long term (current) drug therapy; Z79.82 Long term (current) use of aspirin; Z98.890 Other specified postprocedural states
CPT/HCPCS: 99284; 96360; 70450; 80053; 85025; 86140; 36415; 96372; J7040; J2550

== ENCOUNTER 2022-08-26 09:53 | Emergency (ER) | payer OTHER ==
[~2022-08-26] VITALS: Ht 172.7 cm; Wt 63.5 kg
[~2022-08-26 09:53] MED LIST changes: +ACET-2247 PO; +CYCL10TA16 PO
[2022-08-26] MEDS ORDERED: ACETAMINOPHEN 325 MG TAB ONE (10:23)
[2022-08-26] MEDS ORDERED: DiphenhydrAMINE HCL 50 MG/ML VIAL ONE (10:24)
[2022-08-26 10:29] LABS: EOSINOPHILS % (AUTO) 0.3 % (0.0-8.0); HEMATOCRIT 41.5 % (42-54); LYMPHOCYTES % (AUTO) 24.5 % (21.0-51.0); MEAN CORPUSCULAR HEMOGLOBIN 29.4 pg (27.0-33.0); MEAN CORPUSCULAR VOLUME 89.1 fL (79-99); MONOCYTES % (AUTO) 3.6 % (3.0-13.0); NEUTROPHILS % (AUTO) 70.3 % (40.0-77.0); PLATELET COUNT (AUTO) 217 K/uL (130-400); RED BLOOD CELL COUNT(AUTO) 4.66 MIL/uL (4.50-6.20); RED CELL DISTRIBUTION WIDTH 14.4 % (11.0-15.5); WHITE BLOOD COUNT (AUTO) 7.3 K/uL (4.8-10.8)
[2022-08-26] MEDS ORDERED: ACETAMINOPHEN 325 MG TAB PO ONE (10:30)
[2022-08-26] MEDS ORDERED: 0.9% NACL 250ML 250 ML IV SCH (10:30)
[2022-08-26] MEDS ORDERED: PROCHLORPERAZINE 10MG/2ML INJ IV ONE (10:30)
[2022-08-26] MEDS ORDERED: DiphenhydrAMINE HCL 50 MG/ML VIAL IV ONE (10:30)
[2022-08-26 11:23] LABS: ALBUMIN 3.9 g/dL (3.5-5.0); CREATININE 0.7 mg/dL (0.5-1.5); TOTAL PROTEIN, SERUM 7.4 g/dL (6.0-8.3)
[2022-08-26 12:00] VITALS: BP 124/78
[2022-08-26] MEDS ORDERED: HYDROMORPHONE 0.5 MG SYG (0.5MG/0.5ML) IVP ONE (12:00)
[2022-08-26 12:12] LABS: POTASSIUM 3.8 mmol/L (3.5-5.1)
== END 2022-08-26 12:11 | disposition home or self-care (01) ==
LOC: EDH 09:53
DX: G43.909 Migraine, unspecified, not intractable, without status migrainosus (principal); R11.2 Nausea with vomiting, unspecified; F41.9 Anxiety disorder, unspecified; G89.29 Other chronic pain; Z88.6 Allergy status to analgesic agent; Z79.899 Other long term (current) drug therapy; Z79.82 Long term (current) use of aspirin; Z98.890 Other specified postprocedural states
CPT/HCPCS: 99284; 96374; 96375; 96361; 80053; 85025; 36415; J1200; J0780; J7050; J1170

== ENCOUNTER 2022-08-29 07:36 | Emergency (ER) | payer OTHER ==
[~2022-08-29] VITALS: Ht 172.7 cm; Wt 65.8 kg
[2022-08-29 07:41] VITALS: BP 147/94
[2022-08-29] MEDS ORDERED: LIDOCAINE HCL 1% 20 ML VIAL INJ STA (07:46)
[2022-08-29] MEDS ORDERED: LIDOCAINE HCL 1% 10 ML VIAL ONE (07:53)
[2022-08-29] MEDS ORDERED: SOLU-MEDROL 125MG VIAL IVP ONE (08:00)
[2022-08-29] MEDS ORDERED: DiphenhydrAMINE HCL 50 MG/ML VIAL IV STA (08:18)
[2022-08-29] MEDS ORDERED: ONDANSETRON 4MG INJ IVP STA (08:18)
[2022-08-29] MEDS ORDERED: 0.9%NACL 1000ML 1,000 ML IV ONE (08:30)
[2022-08-29 08:42] LABS: BASOPHILS % (AUTO) 1.4 % (0.0-5.0); EOSINOPHILS % (AUTO) 3.2 % (0.0-8.0); HEMATOCRIT 39.4 % (42-54); MEAN CORPUSCULAR HEMOGLOBIN 28.9 pg (27.0-33.0); MEAN CORPUSCULAR HGB CONC 32.7 g/dL (32.0-36.0); MEAN CORPUSCULAR VOLUME 88.1 fL (79-99); MONOCYTES % (AUTO) 7.5 % (3.0-13.0); NEUTROPHILS % (AUTO) 58.6 % (40.0-77.0); PLATELET COUNT (AUTO) 227 K/uL (130-400); RED BLOOD CELL COUNT(AUTO) 4.47 MIL/uL (4.50-6.20); RED CELL DISTRIBUTION WIDTH 14.2 % (11.0-15.5); WHITE BLOOD COUNT (AUTO) 5.9 K/uL (4.8-10.8)
[2022-08-29 08:55] LABS: CREATININE 0.7 mg/dL (0.5-1.5); POTASSIUM 3.5 mmol/L (3.5-5.1)
[2022-08-29 08:59] LABS: ALBUMIN 3.9 g/dL (3.5-5.0); TOTAL PROTEIN, SERUM 7.4 g/dL (6.0-8.3)
[2022-08-29] MEDS ORDERED: ACETAMINOPHEN 500 MG TABLET PO STA (08:59)
[2022-08-29] MEDS ORDERED: HALOPERIDOL INJ 5 MG/ML VIAL IV STA (09:02)
[2022-08-29 09:44] LABS: APPEARANCE,URINE CLEAR (CLEAR); BILIRUBIN,URINE NEGATIVE (NEGATIVE); COLOR,URINE COLORLESS (YELLOW); GLUCOSE, URINE (UA) NEGATIVE (NEGATIVE); KETONES,URINE NEGATIVE (NEGATIVE); LEUKOCYTE ESTERASE ,URINE NEGATIVE Leu/uL (NEGATIVE); NITRATE,URINE NEGATIVE (NEGATIVE); OCCULT BLOOD,URINE NEGATIVE (NEGATIVE); PH,URINE 6.5 (5.0-8.0); PROTEIN,URINE NEGATIVE (NEGATIVE); UROBILINOGEN,URINE 0.2 mg/dL (0.2-1.0)
[2022-08-29 09:52] LABS: BACTERIA,URINE RARE /HPF (None Seen); RBC,URINE 0-1 /HPF (0-1); WBC,URINE 0-1 /HPF (0-1)
[2022-08-29 10:20] LABS: AMPHET/METH SCREEN,URINE NEGATIVE (NEGATIVE); BARBITURATE SCREEN, URINE NEGATIVE (NEGATIVE); BENZODIAZEPINES SCREEN,URINE NEGATIVE (NEGATIVE); CANNABINOID SCREEN,URINE NEGATIVE (NEGATIVE); COCAINE SCREEN,URINE NEGATIVE (NEGATIVE); OPIATE SCREEN,URINE NEGATIVE (NEGATIVE); PHENCYCLIDINE SCREEN,URINE NEGATIVE (NEGATIVE)
== END 2022-08-29 09:33 | disposition home or self-care (01) ==
LOC: EDH 07:36
DX: G43.909 Migraine, unspecified, not intractable, without status migrainosus (principal); F41.9 Anxiety disorder, unspecified; Z79.52 Long term (current) use of systemic steroids; Z88.8 Allergy status to other drugs, medicaments and biological substances; Z88.5 Allergy status to narcotic agent; Z76.5 Malingerer [conscious simulation]; Z79.899 Other long term (current) drug therapy
CPT/HCPCS: 99284; 96374; 96375; 80053; 80305; 85025; 81001; 36415; J1200; J2930; J1630; J2405; J3490

== ENCOUNTER 2022-11-22 16:49 | Emergency (ER) | payer OTHER ==
[~2022-11-22] VITALS: Ht 172.7 cm; Wt 56.7 kg
[~2022-11-22 16:49] MED LIST changes: -POTA10CA44 PO; +POTA10CA45 PO; +VENL50 PO
[2022-11-22 17:47] VITALS: BP 141/91
[2022-11-22] MEDS ORDERED: ACETAMINOPHEN 500 MG TABLET PO ONE (19:00)
[2022-11-22 19:23] LABS: EOSINOPHILS % (AUTO) 0.3 % (0.0-8.0); HEMATOCRIT 38.2 % (42-54); LYMPHOCYTES % (AUTO) 12.7 % (21.0-51.0); MEAN CORPUSCULAR HEMOGLOBIN 28.4 pg (27.0-33.0); MEAN CORPUSCULAR HGB CONC 31.9 g/dL (32.0-36.0); MONOCYTES % (AUTO) 2.6 % (3.0-13.0); NEUTROPHILS % (AUTO) 83.1 % (40.0-77.0); PLATELET COUNT (AUTO) 243 K/uL (130-400); RED BLOOD CELL COUNT(AUTO) 4.29 MIL/uL (4.50-6.20); RED CELL DISTRIBUTION WIDTH 13.3 % (11.0-15.5); WHITE BLOOD COUNT (AUTO) 6.1 K/uL (4.8-10.8)
[2022-11-22 19:31] LABS: APPEARANCE,URINE CLOUDY (CLEAR); BILIRUBIN,URINE NEGATIVE (NEGATIVE); COLOR,URINE LIGHT-YELLOW (YELLOW); GLUCOSE, URINE (UA) NEGATIVE (NEGATIVE); KETONES,URINE 10 mg/dL (NEGATIVE); LEUKOCYTE ESTERASE ,URINE NEGATIVE Leu/uL (NEGATIVE); NITRATE,URINE NEGATIVE (NEGATIVE); OCCULT BLOOD,URINE NEGATIVE (NEGATIVE); PROTEIN,URINE NEGATIVE (NEGATIVE); UROBILINOGEN,URINE 0.2 mg/dL (0.2-1.0)
[2022-11-22 19:31] LABS: CREATININE 0.8 mg/dL (0.5-1.5); POTASSIUM 3.9 mmol/L (3.5-5.1)
[2022-11-22 19:36] LABS: TOTAL PROTEIN, SERUM 8.3 g/dL (6.0-8.3)
[2022-11-22 19:37] LABS: BACTERIA,URINE FEW /HPF (None Seen); MUCUS,URINE RARE LPF (None Seen); SQUAMOUS EPITHELIAL CELL,UR RARE /HPF (0-2); YEAST,URINE BUDDING MOD /HPF (None Seen)
== END 2022-11-22 20:40 | disposition home or self-care (01) ==
LOC: EDH 16:49
DX: G43.909 Migraine, unspecified, not intractable, without status migrainosus (principal); M54.50 Low back pain, unspecified; F41.9 Anxiety disorder, unspecified; Z79.899 Other long term (current) drug therapy; Z88.5 Allergy status to narcotic agent; Z88.8 Allergy status to other drugs, medicaments and biological substances
CPT/HCPCS: 36415; 70450; 71045; 80053; 81001; 85025